=== PATIENT | male | born 1950 | race Two or more races ===

== ENCOUNTER 2016-06-28 09:07 | Day surgery (SDC) | payer OTHER, MEDICARE ==
[~2016-06-28 09:07] MED LIST: FENTANYL 250 MCG/5 ML AMP IV PRN; LACTATED RINGERS 1,000 ML IV SCH; MIDAZOLAM HCL 5 MG/5 ML VIAL IV PRN
[2016-06-28] MEDS ORDERED: LACTATED RINGERS 1,000 ML ONE (09:33)
[2016-06-28] MEDS ORDERED: IV START KIT ONE (09:33)
[2016-06-28] MEDS ORDERED: FENTANYL 250 MCG/5 ML AMP ONE (10:55)
[2016-06-28] MEDS ORDERED: MIDAZOLAM HCL 5 MG/5 ML VIAL ONE (10:55)
== END 2016-06-28 12:03 | disposition home or self-care (01) ==
LOC: SDC 09:07
PROVIDERS: ATTEND Internal Medicine Gastroenterology
PROC: 0DBL8ZX Excision of Transverse Colon, Via Natural or Artificial Opening Endoscopic, Diagnostic (ICD-10-PCS; principal; 2016-06-28)
DX: Z12.11 Encounter for screening for malignant neoplasm of colon (principal); D12.3 Benign neoplasm of transverse colon; Z80.0 Family history of malignant neoplasm of digestive organs; I10 Essential (primary) hypertension; M79.1 Myalgia; G89.29 Other chronic pain; J30.9 Allergic rhinitis, unspecified; Z88.8 Allergy status to other drugs, medicaments and biological substances; Z79.82 Long term (current) use of aspirin
CPT/HCPCS: 45385; J3010; J2250; J7120